=== PATIENT | male | born 1945 | race Caucasian/White ===

== ENCOUNTER → 2018-10-17 07:46 | Outpatient (CLI) | payer MEDICARE, OTHER, SELFPAY ==
--- NOTE | 2018-10-17 10:26 | PM.TREADMILL ---
Cardiac Stress Test Report Referral & Results Date Patient Seen: 10/17/18 Requesting provider: Silvestre Fierro Indication: Abnormal ECG Procedure Note: Today following both written and verbal informed consent, the patient was exercised according to a standard [facility] protocol. The patient exercised for a total of 3 min 37 sec achieving a maximum heart rate of 199, artifact may have thrown this off actual maximum heart rate I saw was in the 160s. Patient's maximum systolic blood pressure was 196. This was an estimated 4.6 MET's. There are no ST-T segment changes Patient was quickly tachycardic but quickly fatigued as well. Functional aerobic impairment rated 40% on the sedentary scale Occasional PVCs Brief runs of SVT were noted in recovery that appear to be asymptomatic Impression: Limited exercise capacity No evidence of ischemia Ventricular dysrhythmias above SVT as above Outpatient phototypesetting equipment monitor for more careful evaluation of patient's dysrhythmia should be considered Please note: Actual ECG tracings can be found in the PACS system.
== END ==
PROVIDERS: PCP Student in an Organized Health Care Education/Training Program; Visit Provider Student in an Organized Health Care Education/Training Program
DX: R94.31 Abnormal electrocardiogram [ECG] [EKG] (principal); I47.1 Supraventricular tachycardia
CPT/HCPCS: 93016; 93017; 93018